=== PATIENT | female | born 1950 | race Caucasian/White ===

== ENCOUNTER 2018-01-06 18:29 | Observation (INO) | payer MEDICARE ==
[~2018-01-06] VITALS: Ht 165.1 cm; Wt 59.9 kg
[2018-01-06 19:08] LABS: Source, Urine Clean Catch
[2018-01-06 19:11] LABS: Bilirubin, Urine Neg (Neg); Blood, Urine Neg (Neg); Glucose Qualitative, Urine Neg (Neg); Ketones, Urine Neg (Neg); Leukocyte Esterase, Urine 1+ (Neg); Nitrite, Urine Neg (Neg); Protein, Urine Neg (Neg); Urobilinogen, Urine NORM (Normal)
[2018-01-06 19:19] LABS: BASOPHILS ABSOLUTE AUTO 0.07 K/mm3 (0.00-0.23); BASOPHILS PERCENT AUTO 1 % (0-2); EOSINOPHILS ABSOLUTE AUTO 0.19 K/mm3 (0.00-0.68); EOSINOPHILS PERCENT AUTO 3 % (0-6); Hematocrit 37.6 % (33.0-51.0); IMMATURE GRAN ABSOLUTE AUTO 0.02 K/mm3 (0.00-0.10); IMMATURE GRAN PERCENT AUTO 0 % (0-1); LYMPHOCYTES ABSOLUTE AUTO 1.83 K/mm3 (0.84-5.20); LYMPHOCYTES PERCENT AUTO 25 % (21-46); MONOCYTES PERCENT AUTO 14 % (4-13); Mean Corpuscular HGB 29.7 pg (26.0-34.0); Mean Corpuscular HGB Conc 34.6 g/dL (31.5-36.5); Mean Corpuscular Volume 86 fL (80-100); Mean Platelet Volume 9.5 fL (9.1-12.4); NEUTROPHILS ABSOLUTE AUTO 4.31 K/mm3 (1.96-9.15); NEUTROPHILS PERCENT AUTO 58 % (41-73); Platelet Count 305 K/mm3 (150-400); RDW Coefficient Variation 13.3 % (11.7-14.2); RDW Standard Deviation 42.3 fL (35.1-46.3); Red Blood Cell Count 4.37 M/mm3 (3.80-5.20); White Blood Cell Count 7.42 K/mm3 (4.00-11.30)
[2018-01-06 19:20] LABS: Appearance, Urine Clear (Clear); Color, Urine Yellow (P-Yellow)
[2018-01-06 19:21] LABS: Red Blood Cells, Urine Not Seen /hpf (0-2)
[2018-01-06 19:22] LABS: U Amphetamine Screen Not Detected; U Barbituate Screen Not Detected; U Benzodiazapine Screen Not Detected; U Buprenorphine Screen Not Detected; U Cannabinoids Screen Not Detected; U Cocaine Screen Not Detected; U Methadone Screen Not Detected; U Methamphetamine Screen Not Detected; U Opiates Screen Not Detected; U Oxycodone Screen Not Detected; U Phencyclidine Screen Not Detected; U Propoxyphene Screen Not Detected
[2018-01-06 19:22] LABS: Bacteria Rare /hpf; Squamous Epithelial Cells Rare /hpf (Few)
[2018-01-06 19:42] LABS: Alanine Aminotransfer (ALT/SGP 43 U/L (12-78); Albumin, Blood 3.8 g/dL (3.4-5.0); Albumin/Globulin Ratio 1.2 (0.8-1.8); Alk Phos 50 U/L (50-136); Anion Gap 9 mmol/L (6-16); Aspartate Aminotrans (AST/SGOT 37 U/L (12-37); Bilirubin, Total 0.5 mg/dL (0.1-1.0); Blood Urea Nitrogen 12 mg/dL (8-24); Bun/Creatinine Ratio 19.7 (12.0-20.0); CO2, Blood 24 mmol/L (21-32); Calcium, Blood 8.9 mg/dL (8.5-10.1); Chloride, Blood 103 mmol/L (98-108); Creatinine, Blood 0.61 mg/dL (0.40-1.00); Ethanol (Alcohol), Blood, Med <3 mg/dL; Globulin, Blood 3.3 g/dL (2.2-4.0); Glomerular Filtration Rate >60 (60-); Glucose, Blood 122 mg/dL (70-99); Potassium, Blood 3.8 mmol/L (3.5-5.5); Sodium, Blood 136 mmol/L (136-145); Total Protein, Blood 7.1 g/dL (6.4-8.2)
[2018-01-06 19:46] LABS: Thyroid Stimulating Hormone 0.838 uIU/mL (0.360-4.800)
[2018-01-07] MEDS ORDERED: RISP1 PO (06:57)
== END 2018-01-08 13:46 | disposition home or self-care (01) ==
LOC: ER 18:29 → EOR 18:30
PROVIDERS: Emergency Medicine
DX: F31.2 Bipolar disorder, current episode manic severe with psychotic features (principal); F17.200 Nicotine dependence, unspecified, uncomplicated; F03.90 Unspecified dementia, unspecified severity, without behavioral disturbance, psychotic disturbance, mood disturbance, and anxiety; Z79.899 Other long term (current) drug therapy
CPT/HCPCS: 36415; 70450; 80053; 81001; 84443; 85025; 87086; 99285-25; G0378; G0480; Q3014

== ENCOUNTER 2018-10-17 18:32 | Observation (INO) | payer MEDICARE, OTHER ==
[~2018-10-17] VITALS: Ht 162.6 cm; Wt 47.2 kg
[~2018-10-17 18:32] MED LIST: RISP1 PO
[2018-10-17 19:15] LABS: Source, Urine Clean Catch
[2018-10-17 19:30] LABS: BASOPHILS ABSOLUTE AUTO 0.04 K/mm3 (0.00-0.23); BASOPHILS PERCENT AUTO 0 % (0-2); EOSINOPHILS ABSOLUTE AUTO 0.21 K/mm3 (0.00-0.68); EOSINOPHILS PERCENT AUTO 1 % (0-6); Hematocrit 48.1 % (33.0-51.0); Hemoglobin 16.3 g/dL (11.5-16.0); IMMATURE GRAN ABSOLUTE AUTO 0.08 K/mm3 (0.00-0.10); IMMATURE GRAN PERCENT AUTO 1 % (0-1); LYMPHOCYTES ABSOLUTE AUTO 2.53 K/mm3 (0.84-5.20); LYMPHOCYTES PERCENT AUTO 17 % (21-46); MONOCYTES ABSOLUTE AUTO 0.97 K/mm3 (0.16-1.47); MONOCYTES PERCENT AUTO 7 % (4-13); Mean Corpuscular HGB Conc 33.9 g/dL (31.5-36.5); Mean Corpuscular Volume 91 fL (80-100); Mean Platelet Volume 9.6 fL (9.1-12.4); NEUTROPHILS ABSOLUTE AUTO 10.89 K/mm3 (1.96-9.15); NEUTROPHILS PERCENT AUTO 74 % (41-73); Platelet Count 323 K/mm3 (150-400); RDW Coefficient Variation 13.4 % (11.7-14.2); RDW Standard Deviation 45.7 fL (35.1-46.3); Red Blood Cell Count 5.26 M/mm3 (3.80-5.20); White Blood Cell Count 14.72 K/mm3 (4.00-11.30)
[2018-10-17 19:32] LABS: Appearance, Urine Clear (Clear); Bilirubin, Urine Neg (Neg); Blood, Urine Neg (Neg); Color, Urine Yellow (P-Yellow); Glucose Qualitative, Urine Neg (Neg); Ketones, Urine Neg (Neg); Leukocyte Esterase, Urine 1+ (Neg); Nitrite, Urine Neg (Neg); Protein, Urine Neg (Neg); Urobilinogen, Urine NORM (Normal); pH, Urine 6.5 (5.0-8.0)
[2018-10-17 19:38] LABS: Bacteria Rare /hpf; Red Blood Cells, Urine Not Seen /hpf (0-2); Squamous Epithelial Cells Mod /hpf (Few)
[2018-10-17 19:40] LABS: U Amphetamine Screen Not Detected; U Barbituate Screen Not Detected; U Benzodiazapine Screen Not Detected; U Cannabinoids Screen Not Detected; U Cocaine Screen Not Detected; U Methadone Screen Not Detected; U Methamphetamine Screen Not Detected; U Opiates Screen Not Detected; U Phencyclidine Screen Not Detected
[2018-10-17 19:41] LABS: U Buprenorphine Screen Not Detected; U Oxycodone Screen Not Detected; U Propoxyphene Screen Not Detected
[2018-10-17 19:56] LABS: Alanine Aminotransfer (ALT/SGP 23 U/L (12-78); Albumin, Blood 3.8 g/dL (3.4-5.0); Albumin/Globulin Ratio 1.1 (0.8-1.8); Alk Phos 60 U/L (50-136); Anion Gap 7 mmol/L (6-16); Aspartate Aminotrans (AST/SGOT 18 U/L (12-37); Bilirubin, Total 0.5 mg/dL (0.1-1.0); Blood Urea Nitrogen 9 mg/dL (8-24); Bun/Creatinine Ratio 13.7 (12.0-20.0); CO2, Blood 28 mmol/L (21-32); Calcium, Blood 8.9 mg/dL (8.5-10.1); Chloride, Blood 103 mmol/L (98-108); Creatinine, Blood 0.66 mg/dL (0.40-1.00); Globulin, Blood 3.4 g/dL (2.2-4.0); Glomerular Filtration Rate >60 (60-); Glucose, Blood 96 mg/dL (70-99); Potassium, Blood 3.5 mmol/L (3.5-5.5); Sodium, Blood 138 mmol/L (136-145); Total Protein, Blood 7.2 g/dL (6.4-8.2)
[2018-10-17 20:10] LABS: Free Thyroxine 1.3 ng/dL (0.70-1.60)
[2018-10-17 20:15] LABS: Thyroid Stimulating Hormone 0.51 uIU/mL (0.360-4.800)
[2018-10-17] MEDS ORDERED: QUET100 PO (20:44)
[2018-10-18] MEDS ORDERED: Seroquel50 MG PO (18:25)
== END 2018-10-18 18:45 | disposition home or self-care (01) ==
LOC: ER 18:32 → EOR 20:36
PROVIDERS: Physician Assistant; ADMIT Emergency Medicine
DX: F31.9 Bipolar disorder, unspecified (principal); F03.90 Unspecified dementia, unspecified severity, without behavioral disturbance, psychotic disturbance, mood disturbance, and anxiety; F20.9 Schizophrenia, unspecified; F17.210 Nicotine dependence, cigarettes, uncomplicated; Z79.899 Other long term (current) drug therapy
CPT/HCPCS: 71046; 80053; 81001; 84439; 84443; 85025; 87086; 99285-25; G0378; G0480; Q3014

== ENCOUNTER 2022-05-16 18:18 | Emergency (ER) | payer OTHER, MEDICARE ==
[~2022-05-16] VITALS: Ht 162.6 cm; Wt 61.2 kg
[~2022-05-16 18:18] MED LIST changes: +MIRT15 PO; +QUET100 PO; +Seroquel50 MG PO
[2022-05-16] MEDS ORDERED: OXAYDO5 M1 PO (20:38)
== END 2022-05-16 21:29 | disposition home or self-care (01) ==
LOC: ER 18:18
DX: S32.592A Other specified fracture of left pubis, initial encounter for closed fracture (principal); W01.0XXA Fall on same level from slipping, tripping and stumbling without subsequent striking against object, initial encounter; F03.90 Unspecified dementia, unspecified severity, without behavioral disturbance, psychotic disturbance, mood disturbance, and anxiety; F17.200 Nicotine dependence, unspecified, uncomplicated; Z79.899 Other long term (current) drug therapy
CPT/HCPCS: 72100; 72170; 72220; A9270

== ENCOUNTER 2022-05-20 14:26 | Observation (INO) | payer MEDICARE, OTHER ==
[~2022-05-20] VITALS: Ht 162.6 cm; Wt 60.3 kg
[~2022-05-20 14:26] MED LIST changes: +OXAYDO5 M1 PO
[2022-05-20] MEDS ORDERED: QUET100 PO (14:43)
[2022-05-20] MEDS ORDERED: MIRT15 (14:43)
[2022-05-20 15:14] LABS: BASOPHILS ABSOLUTE AUTO 0.04 K/mm3 (0.00-0.23); BASOPHILS PERCENT AUTO 1 % (0-2); EOSINOPHILS ABSOLUTE AUTO 0.15 K/mm3 (0.00-0.68); EOSINOPHILS PERCENT AUTO 2 % (0-6); Hematocrit 35.9 % (33.0-51.0); Hemoglobin 12.2 g/dL (11.5-16.0); IMMATURE GRAN ABSOLUTE AUTO 0.03 K/mm3 (0.00-0.10); IMMATURE GRAN PERCENT AUTO 0 % (0-1); LYMPHOCYTES ABSOLUTE AUTO 1.51 K/mm3 (0.84-5.20); LYMPHOCYTES PERCENT AUTO 20 % (21-46); MONOCYTES ABSOLUTE AUTO 0.81 K/mm3 (0.16-1.47); MONOCYTES PERCENT AUTO 10 % (4-13); Mean Corpuscular HGB 29.5 pg (26.0-34.0); Mean Corpuscular Volume 87 fL (80-100); Mean Platelet Volume 10.3 fL (9.1-12.4); NEUTROPHILS ABSOLUTE AUTO 5.22 K/mm3 (1.96-9.15); NEUTROPHILS PERCENT AUTO 67 % (41-73); Platelet Count 218 K/mm3 (150-400); RDW Coefficient Variation 13.8 % (11.7-14.2); RDW Standard Deviation 43.7 fL (35.1-46.3); Red Blood Cell Count 4.14 M/mm3 (3.80-5.20); White Blood Cell Count 7.76 K/mm3 (4.00-11.30)
[2022-05-20 15:28] LABS: Albumin, Blood 3.1 g/dL (3.4-5.0); Bilirubin, Total 1.1 mg/dL (0.1-1.0); Bun/Creatinine Ratio 16.6 (12.0-20.0); Calcium, Blood 8.5 mg/dL (8.5-10.1); Creatinine, Blood 0.6 mg/dL (0.40-1.00); Globulin, Blood 3.1 g/dL (2.2-4.0); Potassium, Blood 3.4 mmol/L (3.5-5.5); Total Protein, Blood 6.2 g/dL (6.4-8.2)
[2022-05-20 15:50] LABS: Influenza A, PCR NEGATIVE (NEGATIVE); Influenza B, PCR NEGATIVE (NEGATIVE); Resp Syncytial Virus, PCR NEGATIVE (NEGATIVE); SARS-Cov-2 (COVID-19) PCR, MMC NEGATIVE (NEGATIVE)
[2022-05-20] MEDS ORDERED: ATOR40TA PO (21:57)
--- NOTE | 2022-05-21 03:36 | NUR ---
SHIFT SUMMARY PT ARRIVED TO FLOOR, ASSESSMENT AND AMDISSION COMPLETE. SKIN INTACT THROUGHOUT. REPORTS MILD PAIN TO L HIP. ON 3LO2 DURING NIGHT. PT HAS COUGH BUT DENIES ANY SOB. NO OTHER S/S OF DISTRESS. PT USING COMMODE. PT SLEPT REST OF NIGHT. PT ABLE TO MAKE NEEDS KNOWN, BED ALARM ON. WILL CONTINUE TO MONITOR
[2022-05-21 05:39] LABS: Bun/Creatinine Ratio 27.3 (12.0-20.0); Calcium, Blood 8.9 mg/dL (8.5-10.1); Creatinine, Blood 0.51 mg/dL (0.40-1.00); Potassium, Blood 4.2 mmol/L (3.5-5.5)
[2022-05-21] MEDS ORDERED: Prednisone10 MG PO (14:29)
--- NOTE | 2022-05-21 18:16 | NUR ---
1538 patient discharged, w/c ride to [place]
== END 2022-05-21 17:31 | disposition home health service (06) ==
LOC: ER 14:26 → MEDS 20:24 → ERHOLD 20:24 → MEDS 22:01
PROVIDERS: Emergency Medicine; ADMIT Family Medicine
DX: J96.01 Acute respiratory failure with hypoxia (principal); J44.1 Chronic obstructive pulmonary disease with (acute) exacerbation; Z20.822 Contact with and (suspected) exposure to COVID-19; Z66 Do not resuscitate; E87.6 Hypokalemia
CPT/HCPCS: 0241U; 36415; 71045; 72170; 72220; 80048; 80053; 83880; 84484; 85025; 93005; 93010; 94640; 94644; 94664; 96372; 97110; 97116; 97162; 97166; 97535; A9270; G0378; J1650; J7512

== ENCOUNTER 2022-05-27 15:32 | Inpatient (IN) | payer MEDICARE, OTHER ==
[~2022-05-27] VITALS: Ht 162.6 cm; Wt 58.3 kg
[~2022-05-27 15:32] MED LIST changes: +ATOR40TA PO; +MIRT15; +Prednisone10 MG PO
[2022-05-27 16:31] LABS: BASOPHILS ABSOLUTE AUTO 0.01 K/mm3 (0.00-0.23); BASOPHILS PERCENT AUTO 0 % (0-2); EOSINOPHILS ABSOLUTE AUTO 0.02 K/mm3 (0.00-0.68); EOSINOPHILS PERCENT AUTO 0 % (0-6); Hematocrit 38.2 % (33.0-51.0); Hemoglobin 12.6 g/dL (11.5-16.0); IMMATURE GRAN ABSOLUTE AUTO 0.04 K/mm3 (0.00-0.10); IMMATURE GRAN PERCENT AUTO 0 % (0-1); LYMPHOCYTES PERCENT AUTO 3 % (21-46); MONOCYTES ABSOLUTE AUTO 0.52 K/mm3 (0.16-1.47); MONOCYTES PERCENT AUTO 6 % (4-13); Mean Corpuscular Volume 91 fL (80-100); Mean Platelet Volume 9.4 fL (9.1-12.4); NEUTROPHILS ABSOLUTE AUTO 8.65 K/mm3 (1.96-9.15); NEUTROPHILS PERCENT AUTO 91 % (41-73); Platelet Count 373 K/mm3 (150-400); RDW Coefficient Variation 15.4 % (11.7-14.2); RDW Standard Deviation 51.1 fL (35.1-46.3); White Blood Cell Count 9.54 K/mm3 (4.00-11.30)
[2022-05-27 16:53] LABS: Albumin, Blood 3.3 g/dL (3.4-5.0); Albumin/Globulin Ratio 1.1 (0.8-1.8); Bilirubin, Total 0.6 mg/dL (0.1-1.0); Bun/Creatinine Ratio 15.2 (12.0-20.0); Calcium, Blood 8.4 mg/dL (8.5-10.1); Creatinine, Blood 0.59 mg/dL (0.40-1.00); Globulin, Blood 3.1 g/dL (2.2-4.0); Potassium, Blood 4.2 mmol/L (3.5-5.5); Total Protein, Blood 6.4 g/dL (6.4-8.2)
[2022-05-27 18:07] LABS: Influenza B, PCR NEGATIVE (NEGATIVE); Resp Syncytial Virus, PCR NEGATIVE (NEGATIVE); SARS-Cov-2 (COVID-19) PCR, MMC NEGATIVE (NEGATIVE)
[2022-05-27 18:08] LABS: Influenza A, PCR POSITIVE (NEGATIVE)
--- NOTE | 2022-05-27 23:13 | NUR ---
ASSUMPTION OF CARE NOTE PT ARRIVED FROM ER TO PCU 17 AT 2049. PT IS A/Ox3 AND IS COOPERTIVE WITH CARE PROVIDED BY STAFF. CAN BE FORGETFUL AT TIMES AND IS SLOW TO RESPOND TO SOME QUESTIONS. MAINTAINS SPO2 >90% ON 2L VIA NC WITH NO SOB OR DYSPNEA NOTED AT REST. CARDIAC GARCIA. HR IN THE 70'S WITH NO CP OR PRESSURE REPORTED BY THE PT AT THIS TIME. BP'S ARE STABLE AT THIS TIME. BS PRESENT IN ALL QUADRANTS, NO UO AT THIS TIME. MEDICATIONS GIVEN ORDERED PER EMAR. WILL CONTINUE TO LOOK THROUGH CHART AND MONITOR PT
[2022-05-28 06:24] LABS: BASOPHILS ABSOLUTE AUTO 0.01 K/mm3 (0.00-0.23); BASOPHILS PERCENT AUTO 0 % (0-2); EOSINOPHILS ABSOLUTE AUTO 0.01 K/mm3 (0.00-0.68); EOSINOPHILS PERCENT AUTO 0 % (0-6); Hematocrit 35.7 % (33.0-51.0); Hemoglobin 11.7 g/dL (11.5-16.0); IMMATURE GRAN ABSOLUTE AUTO 0.04 K/mm3 (0.00-0.10); IMMATURE GRAN PERCENT AUTO 1 % (0-1); LYMPHOCYTES ABSOLUTE AUTO 0.39 K/mm3 (0.84-5.20); LYMPHOCYTES PERCENT AUTO 5 % (21-46); MONOCYTES ABSOLUTE AUTO 0.41 K/mm3 (0.16-1.47); MONOCYTES PERCENT AUTO 5 % (4-13); Mean Corpuscular HGB 29.8 pg (26.0-34.0); Mean Corpuscular HGB Conc 32.8 g/dL (31.5-36.5); Mean Corpuscular Volume 91 fL (80-100); Mean Platelet Volume 9.8 fL (9.1-12.4); NEUTROPHILS ABSOLUTE AUTO 7.42 K/mm3 (1.96-9.15); NEUTROPHILS PERCENT AUTO 90 % (41-73); Platelet Count 360 K/mm3 (150-400); RDW Coefficient Variation 15.5 % (11.7-14.2); RDW Standard Deviation 51.1 fL (35.1-46.3); Red Blood Cell Count 3.93 M/mm3 (3.80-5.20); White Blood Cell Count 8.28 K/mm3 (4.00-11.30)
[2022-05-28 06:34] LABS: Bun/Creatinine Ratio 24.2 (12.0-20.0); Calcium, Blood 8.2 mg/dL (8.5-10.1); Creatinine, Blood 0.5 mg/dL (0.40-1.00); Potassium, Blood 4.4 mmol/L (3.5-5.5)
--- NOTE | 2022-05-28 06:43 | NUR ---
SHIFT SUMMARY NO ACUTE CHANGES FROM TRANSFER OF CARE NOTE. VSS, NADN
--- NOTE | 2022-05-28 09:16 | NUR ---
AM NOTE: PATIENT ALERT AND ORIENTED. UNABLE TO TELL ME DATE. FORGETFUL AT TIMES NEEDING REINFORCED EDUCATION ON HOW TO USE CALL LIGHT AND SAFETY MEASURES. DENIES NUMBNESS/TINGLING. PERRLA. 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 SOMEWHAT WEAK AND PAINFUL ON LEFT HIP DUE TO RECENT GLF. BRUISING NOTED TO LEFT HIP/INNER THIGH. PATIENT DENIES NEEDS FOR ANY PAIN MEDICATION. Q2 TURNING AND NEEDED. ON 2L NASAL CANNULA SATING ABOVE 94%. FREQUENT DRY COUGH NOTED. COARSE LUNGS THROUGHOUT. SOB WITH TALKING AND MOVEMENT. TELE SHOWING SINUS RHYTHM WITH HR 70-80'S. STABLE BP. NO SIGNS OF EDEMA. PPP. DENIES ABDOMINAL PAIN/NAUSEA. EATING WNL. UP TO BSC WITH 1 PERSON ASSIST. NICOTINE PATCH TO LEFT SHOULDER. NS INFUSING PER EMAR. CALL LIGHT IN REACH.
--- NOTE | 2022-05-28 17:56 | NUR ---
SHIFT SUMMARY: NO ACUTE CHANGES THROUGHOUT SHIFT, SEE PREVIOUS NOTES FOR UPDATES. REMAINS ON 2-4L NASAL CANNULA SATING LOW-MID 90'S. VERY FORGETFUL AND TAKING OUT 02. DESATS TO LOW 80'S WHEN O2 IS OFF. BED ALARM ON FOR SAFETY. TELE CONTINUES TO SHOW SR. VITALS STABLE THROUGHOUT SHIFT. EATING WNL. TMAX 99.3, TYLENOL GIVEN. PRN COUGH MEDS. SBA TO BSC TO HELP MANAGE LINES. WORKING WITH PHYSICAL THERAPY.
--- NOTE | 2022-05-29 04:58 | NUR ---
SHIFT SUMMARY PT A&Ox4, CAN BE FORGETFUL AT TIMES, EASILY REORIENTED. VSS, BP STABLE, SINUS 80's, DENIES CP/PRESSURE. SpO2> 92% ON 3L VIA NC, PT DESATURATES TO MID 80's WITH ACTIVITY, RECOVERS AFTER A FEW MINUTES OF REST. DENIES SOB AT REST, REPORTS MILD SOB WITH ACTIVITY. PT WITH OCCATIONAL NONPRODUCTIVE COUGH. PT USED CALL LIGHT APPROPRIATELY THROUHOUT THE NIGHT, BED ALARM USED THROUGHOUT SHIFT. SBA TO BSC FOR VOIDS, CONTINTNET OF URINE. NO ACUTE EVENTS THIS SHIFT, WILL REPORT TO ON COMING RN.
[2022-05-29 05:19] LABS: BASOPHILS ABSOLUTE AUTO 0.01 K/mm3 (0.00-0.23); BASOPHILS PERCENT AUTO 0 % (0-2); EOSINOPHILS ABSOLUTE AUTO 0.01 K/mm3 (0.00-0.68); EOSINOPHILS PERCENT AUTO 0 % (0-6); Hematocrit 33.9 % (33.0-51.0); Hemoglobin 11.3 g/dL (11.5-16.0); IMMATURE GRAN ABSOLUTE AUTO 0.03 K/mm3 (0.00-0.10); IMMATURE GRAN PERCENT AUTO 0 % (0-1); LYMPHOCYTES ABSOLUTE AUTO 0.42 K/mm3 (0.84-5.20); LYMPHOCYTES PERCENT AUTO 5 % (21-46); MONOCYTES ABSOLUTE AUTO 0.53 K/mm3 (0.16-1.47); MONOCYTES PERCENT AUTO 6 % (4-13); Mean Corpuscular HGB 30.3 pg (26.0-34.0); Mean Corpuscular HGB Conc 33.3 g/dL (31.5-36.5); Mean Corpuscular Volume 91 fL (80-100); Mean Platelet Volume 10.1 fL (9.1-12.4); NEUTROPHILS PERCENT AUTO 88 % (41-73); Platelet Count 332 K/mm3 (150-400); RDW Coefficient Variation 15.6 % (11.7-14.2); RDW Standard Deviation 51.1 fL (35.1-46.3); Red Blood Cell Count 3.73 M/mm3 (3.80-5.20)
[2022-05-29 05:49] LABS: Albumin, Blood 2.5 g/dL (3.4-5.0); Bilirubin, Total 0.3 mg/dL (0.1-1.0); Bun/Creatinine Ratio 28.3 (12.0-20.0); Calcium, Blood 7.7 mg/dL (8.5-10.1); Creatinine, Blood 0.5 mg/dL (0.40-1.00); Globulin, Blood 2.4 g/dL (2.2-4.0); Potassium, Blood 4.2 mmol/L (3.5-5.5); Total Protein, Blood 4.9 g/dL (6.4-8.2)
--- NOTE | 2022-05-29 09:25 | NUR ---
AM NOTE: PATIENT ALERT AND ORIENTED X3. FORGETFUL AND NEEDS REINFORCED EDUCATION ON SAFETY AND PLAN OF CARE. UP TO BSC WITH ONE PERSON ASSIST TO HELP MANAGE CORDS. BED ALARM IN PLACE FOR SAFETY. DENIES N/T. PERRLA. WEARING GLASSES. WEAKNESS NOTED IN LEGS. RECENT GLF AT HOME PRIOR TO ADMIT WITH BRUISING TO LEFT INNER THIGH AND HIP. PATIENT STATES SORENESS IN LEFT HIP WHEN UP TO BSC. ON 2-3L NASAL CANNULA AT REST SATING LOW 90'S. NEEDING UP TO 5L WHEN UP TO BSC. LUNGS COARSE WITH EXP WHEEZE. BREATHING TREATMENTS PER RESPIRATORY. COARSE/LOOSE SOUNDING COUGH. TELE SHOWING SR WITH HR 70-80'S. DENIES CP. PPP. NO SIGNS OF EDEMA. DENIES ABDOMINAL PAIN/NAUSEA. STOOL SOFTNERS GIVEN THIS AM. EATING WNL. UP TO BSC TO VOID. ATTENDS IN PLACE. CALL LIGHT IN REACH.
--- NOTE | 2022-05-29 17:10 | NUR ---
SHIFT SUMMARY: NO ACUTE CHANGES SEE PREVIOUS NOTE FOR UPDATES. REMAINS ON 2-3L AT REST AND NEEDING UP TO 5L WHEN UP TO BSC. MEDICAL STATUS NO TELE. VITALS SIGNS REMAIN STABLE. SOME SORENESS TO LEFT HIP, MEDICATED WITH TYLENOL WITH GOOD RELIEF. SBA TO BSC. BED ALARM ON FOR SAFETY. SISTER MARGUERITE IN TO VISIT AND UPDATED ON PLAN OF CARE. EATING WNL. CONTINUES TO HAVE LOOSE MOIST COUGH. NICOTINE PATCH TO LEFT SHOULDER. CALL LIGHT IN REACH.
[2022-05-30 03:49] LABS: BASOPHILS PERCENT AUTO 0 % (0-2); EOSINOPHILS ABSOLUTE AUTO 0.03 K/mm3 (0.00-0.68); EOSINOPHILS PERCENT AUTO 0 % (0-6); Hematocrit 34.4 % (33.0-51.0); Hemoglobin 11.3 g/dL (11.5-16.0); IMMATURE GRAN ABSOLUTE AUTO 0.06 K/mm3 (0.00-0.10); IMMATURE GRAN PERCENT AUTO 1 % (0-1); LYMPHOCYTES ABSOLUTE AUTO 0.48 K/mm3 (0.84-5.20); LYMPHOCYTES PERCENT AUTO 5 % (21-46); MONOCYTES ABSOLUTE AUTO 0.45 K/mm3 (0.16-1.47); MONOCYTES PERCENT AUTO 5 % (4-13); Mean Corpuscular HGB 29.7 pg (26.0-34.0); Mean Corpuscular HGB Conc 32.8 g/dL (31.5-36.5); Mean Corpuscular Volume 90 fL (80-100); Mean Platelet Volume 9.6 fL (9.1-12.4); NEUTROPHILS PERCENT AUTO 89 % (41-73); Platelet Count 317 K/mm3 (150-400); RDW Coefficient Variation 15.8 % (11.7-14.2); RDW Standard Deviation 52.4 fL (35.1-46.3); Red Blood Cell Count 3.81 M/mm3 (3.80-5.20); White Blood Cell Count 9.12 K/mm3 (4.00-11.30)
[2022-05-30 04:17] LABS: Albumin, Blood 2.6 g/dL (3.4-5.0); Albumin/Globulin Ratio 0.9 (0.8-1.8); Bilirubin, Total 0.5 mg/dL (0.1-1.0); Calcium, Blood 8.2 mg/dL (8.5-10.1); Creatinine, Blood 0.5 mg/dL (0.40-1.00); Globulin, Blood 2.8 g/dL (2.2-4.0); Potassium, Blood 3.7 mmol/L (3.5-5.5); Total Protein, Blood 5.4 g/dL (6.4-8.2)
--- NOTE | 2022-05-30 04:54 | NUR ---
SHIFT SUMMARY PT A&Ox4, CAN BE FORGETFUL AND SET HER BED ALARM OFF TO USE THE BSC AT TIMES, MAJORITY OF THE TIME PT CALLS AND COMMUNICATES NEEDS APPROPRIATELY. VSS, SpO2> 92% ON 3-5L VIA NC, REQUIRING 5L WITH ACTIVITY, REPORTS MILD SOB. BP STABLE, PT REMAINED MEDICAL/NO TELE STATUS, DENIES CP/PRESSURE. PT SBA TO BSC, CONTINENT OF URINE, NO DID NOT HAVE BM THIS SHIFT. NO ACUTE EVENTS THIS SHIFT, WILL REPORT TO ON COMING RN.
--- NOTE | 2022-05-30 11:11 | NUR ---
CARE ASSUMPTION THIS RN ASSUMED CARE FROM BONIFACIO ACE AT 0700. VSS. MED NO TELE. PATIENT IS ALERT AND ORIENTED X4. PATIENT REPORTS NO CHEST PAIN/PRESSURE, OR PAIN. PATIENT REPORTS SHORTNESS OF BREATH WITH ACITIVITY. SPO2 >90% ON 4L NC. PATIENT LUNGS ARE COARSE THROUGHOUT. SKIN IS FARGLE WITH BRUSING THROUGHOUT. SEE SHIFT ASSESSMENT FOR FURTHER DETIALS. PATIENT ABLE TO PERFORM ADLS INDEPDENTLY WITH ASSISTANCE OR SUPPLES BROUGHT TO HER. PLAN OF CARE UP TO DATE. GOING TO TITRATING OXYGEN AND SEE HOW SHE TOLERATES. MD FRAGOSO BY THIS AM. CALL LIGHT WITHIN REACH AND BED IN LOWEST POSITION. WILL CONTINUE TO MONITOR AND PROVIDE CARE.
--- NOTE | 2022-05-30 16:59 | NUR ---
SHIFT SUMMARY PATIENT NEURO REMAINS INTACT. PATIENT HAS HAD A COUPLE FORGETFUL EPISODES AND GOT OUT OF BED WITHOUT CALLING SETTING THE BED ALARM OFF. THIS RN HAS PROVIDED EDUCATION THROUGHOUT THE SHIFT. PATIENT RECEIVED A FULL BED BATH AND LINEN CHANGE. NO ACUTE CHANGES. VSS. SPO2 >90% ON 3.5L NC. PATIENT CALL LIGHT WITHIN REACH, BED ALARM ON AND BED IN LOWEST POSITION. WILL CONTINUE TO MONITOR AND PROVIDE CARE UNTIL HAND OFF WITH HANGERSMITH.
--- NOTE | 2022-05-30 22:10 | NUR ---
ASSUMPTION OF CARE THIS RN ASSUMED CARE OF PT AT 1900. PT SITTING UP IN BED, WATCHING TV. VSS; BP 120/76 (88), HR 64, RR 16, O2 92% ON 3.5 L, TEMP 99.8. PT DENIES SOB, BUT REPORTS EXPERIENCING SOB W/EXERTION. THIS RN NOTED DRY, NONPRODUCTIVE COUGH, PT DENIES COUGHING UP ANY SPUTUM AND STATES IS IS MORE OF "A DRY COUGH". REQUESTS PRN COUGH MEDICATION. LUNG SOUNDS CLEAR BUT DIMINISHED. PT RESPONDING AND ANSWERING QUESTIONS APPROPRIATELY. PT DENIES CP OR PRESSURE; REPORTS GENERAL PAIN D/T RECENT FALL AND CHRONIC PAIN. REPORTS PAIN IS IN L HIP; THIS RN NOTES BRUISING ON INNER AND OUTER L THIGH D/T RECENT FALL AT HOME. NO EDEMA NOTED. PT UP TO [facility] W/MINIMAL ASSISTANCE TO VOID. O2 SATS DECREASED TO 85%. O2 INCREASED TO 4.5 L VIA NC. PT ENCOURAGED TO TAKE SLOW, DEEP BREATHS. O2 INCREASED. THIS RN NOTED SOB W/EXERTION; PT ALSO REPORTS FEELING SOB. PT BACK TO BED AND REPOSITIONED W/MINIMAL ASSISTANCE. BED ALARM SET, CALL LIGHT IN REACH AND YELLOW SOCKS IN PLACE. PT REMINDED TO USE CALL LIGHT FOR NEEDS AND SAFETY.
[2022-05-31 04:14] LABS: BASOPHILS ABSOLUTE AUTO 0.01 K/mm3 (0.00-0.23); BASOPHILS PERCENT AUTO 0 % (0-2); EOSINOPHILS ABSOLUTE AUTO 0.01 K/mm3 (0.00-0.68); EOSINOPHILS PERCENT AUTO 0 % (0-6); Hematocrit 36.3 % (33.0-51.0); Hemoglobin 11.9 g/dL (11.5-16.0); IMMATURE GRAN ABSOLUTE AUTO 0.05 K/mm3 (0.00-0.10); IMMATURE GRAN PERCENT AUTO 1 % (0-1); LYMPHOCYTES ABSOLUTE AUTO 0.48 K/mm3 (0.84-5.20); LYMPHOCYTES PERCENT AUTO 6 % (21-46); MONOCYTES PERCENT AUTO 8 % (4-13); Mean Corpuscular HGB 29.5 pg (26.0-34.0); Mean Corpuscular HGB Conc 32.8 g/dL (31.5-36.5); Mean Corpuscular Volume 90 fL (80-100); Mean Platelet Volume 9.8 fL (9.1-12.4); NEUTROPHILS ABSOLUTE AUTO 6.74 K/mm3 (1.96-9.15); NEUTROPHILS PERCENT AUTO 86 % (41-73); Platelet Count 303 K/mm3 (150-400); RDW Coefficient Variation 15.7 % (11.7-14.2); Red Blood Cell Count 4.03 M/mm3 (3.80-5.20); White Blood Cell Count 7.89 K/mm3 (4.00-11.30)
[2022-05-31 04:40] LABS: Albumin, Blood 2.6 g/dL (3.4-5.0); Bilirubin, Total 0.6 mg/dL (0.1-1.0); Bun/Creatinine Ratio 22.3 (12.0-20.0); Calcium, Blood 8.4 mg/dL (8.5-10.1); Creatinine, Blood 0.54 mg/dL (0.40-1.00); Globulin, Blood 2.7 g/dL (2.2-4.0); Potassium, Blood 3.5 mmol/L (3.5-5.5); Total Protein, Blood 5.3 g/dL (6.4-8.2)
--- NOTE | 2022-05-31 06:10 | NUR ---
SHIFT SUMMARY PT A&O THROUGHOUT SHIFT. VSS. NO ACUTE CHANGES FROM PREVIOUS NURSING NOTE "ASSUMPTION OF CARE" WRITTEN BY THIS RN. PT RESTED WELL THROUGHOUT SHIFT. PT UP TO BSC X2 TO VOID. O2 SAT DROPPED TO 85%, O2 INCREASED; PT RECOVERED WELL. AFTER RECOVERING, O2 DECREASED BACK DOWN TO 3 L. O2 SATS MAINTAINING, WITH OCCASSION DESAT WHEN PT SLEEPING. DENIES PAIN OR SOB. CALL LIGHT IN REACH AND PT CALLS APPROPRIATELY.
--- NOTE | 2022-05-31 09:44 | NUR ---
ASUMPTION OF CARE: NEURO: ALERT AND ORIENTED, SLIGHTLY FORGETFUL, COOPERATIVE WITH CARE, PLESANT, POOR HISTORIAN. CADIAC: HR IN THE 50-60'S NO TELE. DENIES CHEST PAIN PRESSURE, OR SOB AT REST. LOWER BLOOD PRESSURE, MOST LIKELY PATIENT BASELINE, MAP >70. PULM: PATIENT HAVING EXERTIONAL DYSPNEA. INCREASED O2 TO 5-6 WITH EXERTION AND 3-4L TO MAINTAIN >88%. DENIES SOB AT REST. GI/: AMBULATES TO BSC WITHOUT ASSISTANCE. BOWEL CARE MEDS IN PLACE. WILL CONTINUE TO MONITOR UNTIL SHIFT CHANGE. NO CONCERNS FROM THIS RN AT THIS TIME. NEED FOR HOME O2 MAY BE PLAN FOR DISCHARGE ACCORDING TO PROVIDER.
--- NOTE | 2022-05-31 17:26 | NUR ---
END OF SHIFT: ONLY CHANGES FROM ASSUMPTION OF CARE ARE INCREASED O2 NEEDS TO STAY >88% DUE TO INCREASED EXERTION THROUGH THE DAY. PATIENT IS CURRENLTY ON 5L VIA NC, PATIENT PLAN TO DC TOMORROW. DENIES CHEST PAIN/PRESSURE OR SOB AT THIS TIME, WILL CONTINUE TO MONITOR UNTIL SHIFT CHANGE.
--- NOTE | 2022-06-01 04:20 | NUR ---
SHIFT SUMMARY: PT REMAINS ALERT AND ORIENTED X4, ABLE TO FOLLOW COMMANDS AND MAKE NEEDS KNOWN. BP AND HR STABLE, AFEBRILE, SATURATIONS >88% ON 5L NC, RESPIRATIONS EVEN AND UNLABORED AT REST, LUNG SOUNDS CLEAR IN UPPER, DIM IN BASES. PT STATES SOB WITH ACTIVITY. PULSES EQUAL AND STRONG THROUGHOUT. SBA TO BSC. NO BM THIS SHIFT. NO ACUTE EVENTS OVERNIGHT. BED IN LOW, CALL LIGHT IN REACH, WILL REPORT TO ONCOMING RN.
[2022-06-01 05:05] LABS: Hematocrit 36.8 % (33.0-51.0); Hemoglobin 12.4 g/dL (11.5-16.0); Mean Corpuscular HGB 29.8 pg (26.0-34.0); Mean Corpuscular HGB Conc 33.7 g/dL (31.5-36.5); Mean Corpuscular Volume 89 fL (80-100); Mean Platelet Volume 9.7 fL (9.1-12.4); Platelet Count 293 K/mm3 (150-400); RDW Coefficient Variation 15.4 % (11.7-14.2); RDW Standard Deviation 49.6 fL (35.1-46.3); Red Blood Cell Count 4.16 M/mm3 (3.80-5.20); White Blood Cell Count 9.23 K/mm3 (4.00-11.30)
[2022-06-01 05:26] LABS: Albumin, Blood 2.5 g/dL (3.4-5.0); Albumin/Globulin Ratio 0.9 (0.8-1.8); Bilirubin, Total 0.5 mg/dL (0.1-1.0); Bun/Creatinine Ratio 27.1 (12.0-20.0); Calcium, Blood 8.1 mg/dL (8.5-10.1); Creatinine, Blood 0.55 mg/dL (0.40-1.00); Globulin, Blood 2.9 g/dL (2.2-4.0); Potassium, Blood 3.2 mmol/L (3.5-5.5); Total Protein, Blood 5.4 g/dL (6.4-8.2)
[2022-06-01 05:43] LABS: BASOPHILS PERCENT MAN 0 % (0-2); EOSINOPHILS PERCENT MAN 0 % (0-6); LYMPHOCYTES % ATYPICAL MANUAL 2 % (0-0); LYMPHOCYTES ABSOLUTE MAN 2.58 K/mm3 (0.84-5.20); LYMPHOCYTES PERCENT MAN 26 % (21-46); MONOCYTES ABSOLUTE MAN 0.55 K/mm3 (0.16-1.47); MONOCYTES PERCENT MAN 6 % (4-13); NEUTROPHILS ABSOLUTE MAN 6.09 K/mm3 (1.96-9.15); SEG NEUTROPHILS PERCENT MAN 66 % (41-73); TOTAL CELLS COUNTED 100
[2022-06-01 11:47] LABS: Bicarbonate Venous 35.3 mmol/L (24.0-30.0); PCO2 Venous 56.6 mmHg (38-42); pH Blood Venous 7.46 (7.34-7.37)
--- NOTE | 2022-06-01 18:39 | NUR ---
END OF SHIFT: MAJOR CHANGES: PATIENT WAS STARTING THE DAY AT 6L VIA NC TO NEEDING 12L TO MAINTAIN SPO2 >88% THROUGHOUT THEDAY. RT WITH SCHEDULED BREATHING TREATMENTS, HAS BEEN WATCHING CLOSELY 2V SHOULD AN INCREASE TO PULM EMPHESYEMA. NO OTHER CHANGES. DEEP BREATHING AND FLUTTER VALVE TEACHING PREFORMED WELL. NEURO: PATIENT IS PLESANT ALERT AND ORIENTED, HAS A HARD TIME WITH MEMORY AT TIMES, USES THE CALL LIGHT APPROPRIATELY. CARDIAC: NO TELE DENIES CHEST PAIN PRESSURE OR SOB. BLOOD PRESSURE NORMOTENSIVE FOR PATIENT. PULM: SEE CHANGES ABOVE. GI/: PATIENT WITH GREAT OUTPUT, BM TODAY. CONTINENT AT THIS TIME. NO FURTHER CONCERNS, PROVIDER AWARE OF SITUATION AND PLAN TO ORDER CT IN THE AM IF NO IMPROVEMENT. WILL CONTINUE TO MONITOR UNTIL SHIFT CHANGE.
[2022-06-02 05:31] LABS: Albumin, Blood 2.4 g/dL (3.4-5.0); Albumin/Globulin Ratio 0.9 (0.8-1.8); Bilirubin, Total 0.7 mg/dL (0.1-1.0); Bun/Creatinine Ratio 25.9 (12.0-20.0); Calcium, Blood 8.4 mg/dL (8.5-10.1); Creatinine, Blood 0.5 mg/dL (0.40-1.00); Globulin, Blood 2.7 g/dL (2.2-4.0); Potassium, Blood 3.5 mmol/L (3.5-5.5); Total Protein, Blood 5.1 g/dL (6.4-8.2)
--- NOTE | 2022-06-02 06:02 | NUR ---
CONTROL ROOM OPERATOR SUMMARY PT IS ALERT AND ORIENTED COMMUNICATING APPROPRIATELY W STAFF THIS SHIFT. PT BEGAN SHIFT VERY SOB W SPO2 86-90% ON 15L NC. PT SWITCHED TO CPAP PER RT AND TAKEN TO PE STUDY PER PROVIDER ORDER HER D-DIMER WAS ELEVATED. AFTER RETURNING FROM CT THE PT WAS PLACED ON AIRVO AND HAS MAINTAINED O2 SATS >92% ON 40L 65-80%. BP WNL AND STABLE. TELE SHOWING SR IN THE 70'S. PT DENYING ANY CP OR PRESSURE THIS SHIFT. PT ABLE TO TOLERATE LYING FLAT BOTH DURING CT AND AGAIN WHEN IN HER ROOM W NO ORTHOPNEA. PT ABLE TO SLEEP COMFORTABLY IN BED W CALL LIGHT WITHIN REACH FOR THE SECOND HALF OF THE NIGHT. WILL REPORT TO ONCOMING RN.
--- NOTE | 2022-06-02 09:17 | NUR ---
AM NOTE: PATIENT ALERT AND ORIENTED X3-4. INTERMIT FORGETFULLNESS. BED ALARM ON FOR SAFETY. PERRLA. LOWER EXTREMITIES WEAK. STATES SHE HAS SOME SORENESS WHEN UP TO BEDSIDE COMMODE FROM RECENT FALL PRIOR TO ADMIT. BRUISING TO LEFT HIP/THIGH FROM FALL. TELE SHOWING SINUS RHYTHM WITH HR 70-80'S. DENIES CHEST PAIN/PRESSURE. BP STABLE. NO SIGNS OF EDEMA. PPP. ON HIGH FLOW HEATED NASAL CANNULA AT 40L AND 65% FIO2, SATING MID 90'S. LUNGS SOUNDING DIM WITH TIGHTNESS. OCCASIONAL MOIST SOUNDING COUGH WITH SPUTUM PRODUCTION. DENIES ABDOMINAL PAIN/NAUSEA. STATES HER APPEATITE IS NOT GREAT. NO SWALLOWING ISSUES NOTED. SBA TO BEDSIDE COMMODE. BED ALARM IN PLACE FOR SAFETY. CALL LIGHT IN REACH.
--- NOTE | 2022-06-02 14:15 | NUR ---
PATIENT SISTER MARGUERITE CALLED TO UPDATE. REMAINS ON 40L AND 65% SATING 90-94%. DISCUSSED POSSIBLE ECHO WITH DR. FRAGOSO. THIS RN TO ORDER ECHO. ORDERS IN PLACE. MERCHANDISE PRESENTATION ASSOCIATE UPDATED ON NEW ORDER. UP TO BSC FOR BATHROOM. BED BATH AND LINNEN CHANGE THIS AFTERNOON. BP REMAINS STABLE BUT ON SOFTER SIDE. PATIENT DENIES OVERALL PAINS. INCREASED WORK OF BREATHING AND DESATS TO HIGH 80'S WHEN UP TO BSC. CALL LIGHT IN REACH.
--- NOTE | 2022-06-02 14:42 | NUR ---
ECHO BEING DONE AT THIS TIME
--- NOTE | 2022-06-02 17:23 | NUR ---
PHYSICAL THERAPY IN TO WORK WITH PATIENT AND UP TO CHAIR FOR 10 MIN. WORK OF BREATHING WORSENING AND PATIENT DESATING TO MID 80'S. NOT RECOVERING QUICKLY. THIS RN CONCERNED WITH RESP STATUS AND PLACED CALL TO RESP THERAPIST, SWITCHED TO CPAP, SETTINGS 8 AND 60% FIO2 SATING MID 90'S. PATIENT NOT HUNGRY AND NOT WANTING TO EAT DINNER. ENCOURAGED TO DRINK WATER. ECHO COMPLETED AND RESULTS READ. PROCAL RESULTED WNL. VITALS SIGNS REMAINS STABLE WITH BP ON SOFTER SIDE. NO TEMP. UP TO BSC WITH ONE PERSON ASSIST. TELE CONTINUES TO SHOW SR.
--- NOTE | 2022-06-03 04:37 | NUR ---
END OF SHIFT SUMMARY: NO ACUTE CHANGES THIS SHIFT. PT ORIENTED, PLEASANT WITH STAFF, AND ANSWERING QUESTIONS APPROPRIATELY. PT SWITCHED TO AIRVO AT THE BEGINNING OF THE SHIFT. SETTINGS INCREASED FROM 45L 60% TO 45L 70% IN ORDER TO MAINTAIN SPO2 >90%. RESPIRATIONS EVEN AND UNLABORED AT REST. PT ABLE TO AMBULATE TO BEDSIDE COMMODE WITH ONE PERSON SBA. PT'S BP REMAINED ON THE SOFTER SIDE. PT DENIES ANY DIZZINESS OR LIGHT HEADEDNESS WITH TRANSFER. WILL CONTINUE TO MONITOR AND REPORT TO ONCOMING RN.
[2022-06-03 05:54] LABS: BASOPHILS ABSOLUTE AUTO 0.01 K/mm3 (0.00-0.23); BASOPHILS PERCENT AUTO 0 % (0-2); EOSINOPHILS ABSOLUTE AUTO 0.11 K/mm3 (0.00-0.68); EOSINOPHILS PERCENT AUTO 1 % (0-6); Hematocrit 36.2 % (33.0-51.0); Hemoglobin 12.3 g/dL (11.5-16.0); IMMATURE GRAN ABSOLUTE AUTO 0.05 K/mm3 (0.00-0.10); IMMATURE GRAN PERCENT AUTO 1 % (0-1); LYMPHOCYTES ABSOLUTE AUTO 1.42 K/mm3 (0.84-5.20); LYMPHOCYTES PERCENT AUTO 14 % (21-46); MONOCYTES ABSOLUTE AUTO 0.75 K/mm3 (0.16-1.47); MONOCYTES PERCENT AUTO 7 % (4-13); Mean Corpuscular HGB 29.5 pg (26.0-34.0); Mean Corpuscular Volume 87 fL (80-100); Mean Platelet Volume 10.7 fL (9.1-12.4); NEUTROPHILS PERCENT AUTO 78 % (41-73); Platelet Count 276 K/mm3 (150-400); RDW Standard Deviation 47.9 fL (35.1-46.3); Red Blood Cell Count 4.17 M/mm3 (3.80-5.20); White Blood Cell Count 10.44 K/mm3 (4.00-11.30)
[2022-06-03 06:34] LABS: Albumin, Blood 2.4 g/dL (3.4-5.0); Albumin/Globulin Ratio 0.8 (0.8-1.8); Bilirubin, Total 0.8 mg/dL (0.1-1.0); Bun/Creatinine Ratio 26.9 (12.0-20.0); Calcium, Blood 8.1 mg/dL (8.5-10.1); Creatinine, Blood 0.52 mg/dL (0.40-1.00); Potassium, Blood 3.4 mmol/L (3.5-5.5); Total Protein, Blood 5.4 g/dL (6.4-8.2)
--- NOTE | 2022-06-03 18:16 | NUR ---
Shift Summary Pt alert, oriented x3, forgetful, repeatedly taking off aorvo and later this evening nc. Pt up with 1person assist to chair and bsc. Pt denies pain, chest pain/pressure, sob nauses, dizziness and numb/tingling. Tele sinus 70-80's, bp stable. Spo2 >90% while o2 therapy in place, pt started on airvo 45L 70% fio2, this afternoon pt found without airvo in place by RT, spo2 87%, RT placed 2l o2 via nc, titrated up to 3l o2 via nc when pt removed o2 for recovery, will continue to titrate. Pt afebrile, other vss. No other acute changes noted. Will continue to monitor unitl report given to oncoming rn.
[2022-06-04 05:07] LABS: BASOPHILS ABSOLUTE AUTO 0.01 K/mm3 (0.00-0.23); BASOPHILS PERCENT AUTO 0 % (0-2); EOSINOPHILS ABSOLUTE AUTO 0.16 K/mm3 (0.00-0.68); EOSINOPHILS PERCENT AUTO 2 % (0-6); Hematocrit 34.2 % (33.0-51.0); Hemoglobin 11.5 g/dL (11.5-16.0); IMMATURE GRAN ABSOLUTE AUTO 0.04 K/mm3 (0.00-0.10); IMMATURE GRAN PERCENT AUTO 1 % (0-1); LYMPHOCYTES PERCENT AUTO 17 % (21-46); MONOCYTES ABSOLUTE AUTO 0.79 K/mm3 (0.16-1.47); MONOCYTES PERCENT AUTO 9 % (4-13); Mean Corpuscular HGB 29.3 pg (26.0-34.0); Mean Corpuscular HGB Conc 33.6 g/dL (31.5-36.5); Mean Corpuscular Volume 87 fL (80-100); Mean Platelet Volume 10.5 fL (9.1-12.4); NEUTROPHILS ABSOLUTE AUTO 6.09 K/mm3 (1.96-9.15); NEUTROPHILS PERCENT AUTO 72 % (41-73); Platelet Count 274 K/mm3 (150-400); RDW Coefficient Variation 14.9 % (11.7-14.2); RDW Standard Deviation 47.1 fL (35.1-46.3); Red Blood Cell Count 3.92 M/mm3 (3.80-5.20); White Blood Cell Count 8.49 K/mm3 (4.00-11.30)
[2022-06-04 05:31] LABS: Albumin, Blood 2.2 g/dL (3.4-5.0); Albumin/Globulin Ratio 0.6 (0.8-1.8); Bilirubin, Total 0.8 mg/dL (0.1-1.0); Bun/Creatinine Ratio 26.4 (12.0-20.0); Calcium, Blood 8.2 mg/dL (8.5-10.1); Creatinine, Blood 0.53 mg/dL (0.40-1.00); Globulin, Blood 3.4 g/dL (2.2-4.0); Potassium, Blood 3.4 mmol/L (3.5-5.5); Total Protein, Blood 5.6 g/dL (6.4-8.2)
--- NOTE | 2022-06-04 05:35 | NUR ---
SHIFT SUMMARY PT ALERT AND ORIENTED X 4 T/O SHIFT. REPORTED TO BE FORGETFUL DURING DAYSHIFT AND REMOVE NC T/O SHIFT. PT SLEPT T/O SHIFT AND DID NOT REMOVE NC. PT CURRENTLY ON AIRVO AT 45L AND 55% FIO2. OXYGEN SATURATION MAINTAINED ABOVE 92%. BP STABLE, MAP ABOVE 65. HR STABLE. NO CP OR PRESSURE. PT REPORTED PAIN ONCE DURING SHIFT IN ABD AND MEDICATED PER EMAR. PT ABLE TO ASSIST IN TURNS IN BED Q 2 HRS AND NEEDED. CALL LIGHT WITHIN REACH. BED ALARM IN PLACE. WILL CONT TO MONITOR UNTIL REPORT GIVEN TO DAYSHIFT RN.
--- NOTE | 2022-06-04 18:18 | NUR ---
SHIFT SUMMARY PT IS ALERT AND ORIENTED X4. SPO2 HAS BEEN MAINTAINED VIA AIRVO 45L 60-70% FIO2. PT DESATS W/ EXERTION BUT RECOVERS QUICKLY. HR AND BP STABLE. SHE HAS REPORTED PAIN IN TAILBONE THAT IS RELIEVED W/ REPOSITIONING. SHE REPORTED NAUSEA THIS AM BUT DENIED NAUSEA MEDICATION, SHE ALSO HAS A DECREASED APPETITE BUT IS TAKING IN PO FLUIDS. SHE HAS BEEN A SBA TO BEDSIDE COMMODE AND WAS UP IN CHAIR FOR LUNCH. SHE DID NOT WANT TO SIT IN CHAIR FOR DINNER. PHYSICAL THERAPY EVALUATED PT TODAY. OCCASIONAL, NON-PRODUCTIVE COUGH NOTED. NO OTHER ACUTE CHANGES NOTED, PT IS NOW WATCHING T.V IN BED, CALL LIGHT IS W/IN REACH. WILL CONTINUE TO MONITOR UNTIL REPORT GIVEN.
[2022-06-05 04:24] LABS: BASOPHILS ABSOLUTE AUTO 0.02 K/mm3 (0.00-0.23); BASOPHILS PERCENT AUTO 0 % (0-2); EOSINOPHILS ABSOLUTE AUTO 0.16 K/mm3 (0.00-0.68); EOSINOPHILS PERCENT AUTO 2 % (0-6); Hematocrit 33.8 % (33.0-51.0); Hemoglobin 11.4 g/dL (11.5-16.0); IMMATURE GRAN ABSOLUTE AUTO 0.04 K/mm3 (0.00-0.10); IMMATURE GRAN PERCENT AUTO 1 % (0-1); LYMPHOCYTES ABSOLUTE AUTO 1.46 K/mm3 (0.84-5.20); LYMPHOCYTES PERCENT AUTO 22 % (21-46); MONOCYTES ABSOLUTE AUTO 0.85 K/mm3 (0.16-1.47); MONOCYTES PERCENT AUTO 13 % (4-13); Mean Corpuscular HGB 29.8 pg (26.0-34.0); Mean Corpuscular HGB Conc 33.7 g/dL (31.5-36.5); Mean Corpuscular Volume 88 fL (80-100); Mean Platelet Volume 9.9 fL (9.1-12.4); NEUTROPHILS ABSOLUTE AUTO 4.24 K/mm3 (1.96-9.15); NEUTROPHILS PERCENT AUTO 63 % (41-73); Platelet Count 287 K/mm3 (150-400); RDW Coefficient Variation 14.5 % (11.7-14.2); Red Blood Cell Count 3.83 M/mm3 (3.80-5.20); White Blood Cell Count 6.77 K/mm3 (4.00-11.30)
[2022-06-05 04:59] LABS: Albumin, Blood 2.2 g/dL (3.4-5.0); Albumin/Globulin Ratio 0.6 (0.8-1.8); Bilirubin, Total 0.7 mg/dL (0.1-1.0); Bun/Creatinine Ratio 32.2 (12.0-20.0); Calcium, Blood 8.1 mg/dL (8.5-10.1); Creatinine, Blood 0.47 mg/dL (0.40-1.00); Globulin, Blood 3.4 g/dL (2.2-4.0); Potassium, Blood 3.5 mmol/L (3.5-5.5); Total Protein, Blood 5.6 g/dL (6.4-8.2)
--- NOTE | 2022-06-05 07:30 | NUR ---
NO ACUTE EVENTS OVERNIGHT LAST NIGHT. PATIENT REMAINS DEPENDENT UPON AIRVO (HEATED HUMIDIFIED HI-FLOW). STARTING OFF THE NIGHT HER SETTINGS WERE 45 LPM AT 70% FiO2. THIS WAS TITRATED DOWN TO 45 LPM AT 60% FiO2 BY THE MORNING. PT REPORTS SHORTNESS OF BREATH AT REST HAS LESSENED BUT IS STILL EXPERIENCING DYSPNEA WITH EXERTION. PATIENT COMPLAINS OF MILD PAIN TO LEFT LEG AND LOWER BACK, BUT DENIED NEED FOR ANY ANALGESICS LAST NIGHT. SHE IS ABLE TO MOVE FROM THE BED TO THE BEDSIDE COMMODE WITH MINIMAL ASSISTANCE, BUT IS SLOW IN DOING SO DUE TO PAIN AND WEAKNESS TO THE LEFT LEG. THIS IS SECONDARY TO A MILD DISPLACEMENT OF THE LEFT SUPERIOR AND INFERIOR RAMI FRACTURE SUSTAINED ON 05/20/22.
--- NOTE | 2022-06-05 18:06 | NUR ---
SHIFT SUMMARY PT REMAINS ALERT AND ORIENTED. HR REMAINS NSR WITH PAC. BP LOW, BUT MAP IS STABLE. PT ASYMPTOMATIC. O2 SATS REMAIN ABOVE 90% ON AIRVO AT 45L AND 60% FIO2. PT DESATS WITH MINIMAL ACTIVITY. PT UP TO BSC WITH 1 ASSIST AND FWW. PT REPORTS POOR APPETITE. NO ACUTE EVENTS THIS SHIFT. WILL CONTINUE TO MONITOR AND REPORT TO ONCOMING RN
--- NOTE | 2022-06-06 05:26 | NUR ---
SHIFT SUMMARY PT IS A&OX4, MOVES IND IN BED, HAS BEEN SR 70'S ON TELE, AND SHE IS ON AIRVO 45L 60%. SHE DESATURATED A FEW TIMES T/O THE NIGHT BUT WAS ABLE TO RECOVER W/ DEEP BREATHING COACHING AND A BOOST OF OXYGEN AT 100% FOR TWO MINUTES. SHE WAS EDUCATED ON THE INSPIROMETER AND HAS USED IT A FEW TIMES TONIGHT. PT IS A 1P W/ FWW ASSIST TO THE BSC AND IS WEAK. SHE CALLS APPROPRIATELY AND IS COOPERATIVE W/ CARE. BED IN LOW, BED ALARM ON, AND CALL LIGHT IS IN REACH. WILL CONTINUE TO MONITOR UNTIL SHIFT REPORT IS GIVEN TO THE ONCOMING SHIFT RN. SEE NOTES FOR ANY UPDATES. AIRVO 45L 60%
[2022-06-06 06:01] LABS: BASOPHILS ABSOLUTE AUTO 0.02 K/mm3 (0.00-0.23); BASOPHILS PERCENT AUTO 0 % (0-2); EOSINOPHILS ABSOLUTE AUTO 0.15 K/mm3 (0.00-0.68); EOSINOPHILS PERCENT AUTO 3 % (0-6); Hematocrit 36.7 % (33.0-51.0); IMMATURE GRAN ABSOLUTE AUTO 0.02 K/mm3 (0.00-0.10); IMMATURE GRAN PERCENT AUTO 0 % (0-1); LYMPHOCYTES ABSOLUTE AUTO 1.39 K/mm3 (0.84-5.20); LYMPHOCYTES PERCENT AUTO 23 % (21-46); MONOCYTES ABSOLUTE AUTO 0.85 K/mm3 (0.16-1.47); MONOCYTES PERCENT AUTO 14 % (4-13); Mean Corpuscular HGB 29.3 pg (26.0-34.0); Mean Corpuscular HGB Conc 32.7 g/dL (31.5-36.5); Mean Corpuscular Volume 90 fL (80-100); Mean Platelet Volume 10.4 fL (9.1-12.4); NEUTROPHILS ABSOLUTE AUTO 3.66 K/mm3 (1.96-9.15); NEUTROPHILS PERCENT AUTO 60 % (41-73); Platelet Count 337 K/mm3 (150-400); RDW Coefficient Variation 14.5 % (11.7-14.2); RDW Standard Deviation 47.4 fL (35.1-46.3); Red Blood Cell Count 4.09 M/mm3 (3.80-5.20); White Blood Cell Count 6.09 K/mm3 (4.00-11.30)
[2022-06-06 07:02] LABS: Albumin, Blood 2.4 g/dL (3.4-5.0); Albumin/Globulin Ratio 0.7 (0.8-1.8); Bilirubin, Total 0.5 mg/dL (0.1-1.0); Bun/Creatinine Ratio 25.8 (12.0-20.0); Calcium, Blood 8.6 mg/dL (8.5-10.1); Creatinine, Blood 0.54 mg/dL (0.40-1.00); Globulin, Blood 3.6 g/dL (2.2-4.0); Potassium, Blood 3.8 mmol/L (3.5-5.5)
--- NOTE | 2022-06-06 18:24 | NUR ---
END OF SHIFT NOTE PT A&O X4. VSS. MONITOR SHOWING SR, HR 70s-80s. SPO2 > 92% ON AIRVO: 40L, 45% FIO2. PT SBA TO BSC. PT SOB W/ EXERTION, REQUIRING TEMPORARY INCREASE IN FIO2 FOR ACTIVITY. OTHERWISE NO EVENTS THIS SHIFT.
[2022-06-07 04:29] LABS: BASOPHILS ABSOLUTE AUTO 0.03 K/mm3 (0.00-0.23); BASOPHILS PERCENT AUTO 1 % (0-2); EOSINOPHILS ABSOLUTE AUTO 0.15 K/mm3 (0.00-0.68); EOSINOPHILS PERCENT AUTO 3 % (0-6); Hematocrit 36.7 % (33.0-51.0); Hemoglobin 12.3 g/dL (11.5-16.0); IMMATURE GRAN ABSOLUTE AUTO 0.02 K/mm3 (0.00-0.10); IMMATURE GRAN PERCENT AUTO 0 % (0-1); LYMPHOCYTES ABSOLUTE AUTO 1.54 K/mm3 (0.84-5.20); LYMPHOCYTES PERCENT AUTO 26 % (21-46); MONOCYTES ABSOLUTE AUTO 0.72 K/mm3 (0.16-1.47); MONOCYTES PERCENT AUTO 12 % (4-13); Mean Corpuscular HGB 29.6 pg (26.0-34.0); Mean Corpuscular HGB Conc 33.5 g/dL (31.5-36.5); Mean Corpuscular Volume 88 fL (80-100); Mean Platelet Volume 10.2 fL (9.1-12.4); NEUTROPHILS ABSOLUTE AUTO 3.41 K/mm3 (1.96-9.15); NEUTROPHILS PERCENT AUTO 58 % (41-73); Platelet Count 373 K/mm3 (150-400); RDW Coefficient Variation 14.5 % (11.7-14.2); RDW Standard Deviation 46.3 fL (35.1-46.3); Red Blood Cell Count 4.15 M/mm3 (3.80-5.20); White Blood Cell Count 5.87 K/mm3 (4.00-11.30)
[2022-06-07 05:02] LABS: Albumin, Blood 2.5 g/dL (3.4-5.0); Albumin/Globulin Ratio 0.7 (0.8-1.8); Bilirubin, Total 0.6 mg/dL (0.1-1.0); Bun/Creatinine Ratio 26.5 (12.0-20.0); Calcium, Blood 8.9 mg/dL (8.5-10.1); Creatinine, Blood 0.53 mg/dL (0.40-1.00); Globulin, Blood 3.7 g/dL (2.2-4.0); Potassium, Blood 4.1 mmol/L (3.5-5.5); Total Protein, Blood 6.2 g/dL (6.4-8.2)
--- NOTE | 2022-06-07 06:05 | NUR ---
SHIFT SUMMARY PATIENT ALERT AND ORIENTED, PLEASANT AND COOOPERATIVE WITH CARE, ABLE TO MAKE NEEDS KNOWN TO STAFF. PATIENT WAS ABLE TO GET GOOD AMOUNT OF SLEEP DURING THE NIGHT. VSS, NOTED SOFT BPs, ON AIRVO 40L 45% FIO2 T/O SHIFT WITH O2 SAT LOW TO MID 90s. PATIENT ABLE TO MOVE SELF IN BED, TRANSFERS SELF TO BEDSIDE COMMODE. NO ACUTE CHANGES THIS SHIFT. WILL REPORT TO DAY SHIFT RN.
--- NOTE | 2022-06-07 18:12 | NUR ---
END OF SHIFT NOTE PT A&O X4. VSS. MONITOR SHOWING SR, HR 70s-80s. PT ON AIRVO: 40L, 45% FIO2 UPON CARE ASSUMPTION, TRANSITIONED TO 9L HI-GREY NC BY RT THIS AM W/ PT TOLERATING WELL. PT NOW W/ SPO2 > 92% ON 8L HI-GREY NC. O2 TEMPORARILY INCREASED TO 11L WHILE EATING LUNCH, NO TITRATION NEEDED WHEN EATING DINNER OR GETTING UP TO BSC LATER IN DAY.
--- NOTE | 2022-06-08 05:43 | NUR ---
SHIFT SUMMARY PATIENT ALERT AND ORIENTED, ABLE TO MAKE NEEDS KNOWN TO STAFF. VSS BUT PATIENT CONTINUES TO HAVE SOFT BPs, MAP >65. REMAINS ON 8L NC WITH O2 SAT >90%. PATIENT ABLE TO GET GOOD AMOUNT OF SLEEP THIS SHIFT WITH NO COMPLAINTS OF PAIN, CHEST PAIN OR SOB. PATIENT ABLE TO MOCE SELF IN THE BED INDEPDENDENTLY AND IS ABLE TO STAND PIVOT SELF TO BEDSIDE COMMODE WITH ADEQUATE OUTPUT. NO OTHER SIGNIFICANT CHANGES THIS SHIFT, WILL REPORT TO DAY SHIFT RN.
--- NOTE | 2022-06-08 17:08 | NUR ---
SHIFT SUMMARY PT IS ALERT AND ORIENTED X 4, SHE IS ABLE TO MAKE HER NEEDS KNOWN. SPO2 IS MAINTAINED VIA 4L HIGH FLOW NC. PT REPORTED THAT SHE DOES FEEL SOB UPON EXERTION BUT IT IS MUCH IMPROVED COMPARED TO PREVIOUS DAYS. HR AND BP STABLE. SHE HAS DENIED FEELINGS OF CHEST PAIN/PRESSURE, SHE HAS DENIED FEELINGS OF NAUSEA, OCCASIONAL, NON-PRODUCTIVE COUGH NOTED. SHE HAS BEEN A SBA TO BEDSIDE COMMODE AND DOES APPEAR WEAK BUT STEADY ON HER FEET. IV IN R FOREARM AND R AC ARE SALINE LOCKED. NO ACUTE CHANGES NOTED. WILL CONTINUE TO MONITOR UNTIL REPORT GIVEN. CALL LIGHT IS IN REACH AND PT IS NOW WATCHING T.V.
--- NOTE | 2022-06-09 06:08 | NUR ---
SHIFT SUMMARY PATIENT ALERT AND ORIENTED, ABLE TO MAKE NEEDS KNOWN TO STAFF. PATIENT ABLE TO GET GOOD AMOUNT OF REST THIS SHIFT. VSS, NOTED SOFT BPs, PATIENT TITRATED TO 3.5L NC WITH O2 SAT >90%. ABLE TO TURN SELF IN BED. UP TO BSC WITH GOOD URINE OUTPUT. NO COMPLAINS OF PAIN, CHEST PAIN OR SOB. NO ACUTE CHANGES. WILL REPORT TO DAY SHIFT RN.
--- NOTE | 2022-06-09 15:19 | NUR ---
CARE NOTE THIS NURSE SPOKE W/ PT SISTER TO PROVIDE UPDATES AT APPROX. 1515.
--- NOTE | 2022-06-09 16:31 | NUR ---
TRANSFER NOTE PT WAS ALERT AND ORIENTED X 4, VSS. SPO2 MAINTAINED 91-93% VIA 3L HFNC. REPORT WAS GIVEN TO SURGICAL NURSE MAY. PT WAS SBA TO WHEELCHAIR AND TRANSFERED FROM PCU AT APPROX. 1625 TO SURGICAL UNIT. MAY RN WAS AT BEDSIDE AND ASSUMED CARE.
--- NOTE | 2022-06-09 16:35 | NUR ---
PT TRANSFERRED NOW FROM PCU. PT A&OX4, ADRIAN PO, DENIES PAIN, 3LNC, SBA TRANSFER TO BED/HOB ELEVATED. EDU PT TO CALL FOR AMBULATION, REPOSITIONS SELF. WILL REPORT TO ONCOMING SON RN.
--- NOTE | 2022-06-10 06:37 | NUR ---
PT VSS T/O NIGHT; SATS >90% ON 3H NC. PT REP FEELING LESS SOB, LUNGS DIM/COARSE, PT HAS OCC LOOSE NON PROD COUGH. PT USING I/S AT BEDSIDE. PT AMB W/FWW+SBA, ADRIAN WELL.
--- NOTE | 2022-06-10 14:33 | NUR ---
SHIFT SUMMARY PT A&OX4, VSS/3L >92% WITH PT REP SOB DECREASING WITH EXERTION, USING I.S., UP TO CHAIR FOR MEALS/T-O SHIFT, AMB FWW/SBA TO BRP, DENIES PAIN. WILL REPORT TO ONCOMING NOC RN.
--- NOTE | 2022-06-11 17:33 | NUR ---
SUMMARY: NO CHANGE TODAY VSS, A/O. PLAN IS FOR SNF WHEN AVALIBLE. CONTINUES ON 3L NC, NO SOB, CHEST PAIN. NO SAFETY CONCERNS, WILL PASS REPORT TO SON RN.
[2022-06-12 04:53] LABS: BASOPHILS ABSOLUTE AUTO 0.06 K/mm3 (0.00-0.23); BASOPHILS PERCENT AUTO 1 % (0-2); EOSINOPHILS ABSOLUTE AUTO 0.33 K/mm3 (0.00-0.68); EOSINOPHILS PERCENT AUTO 5 % (0-6); Hematocrit 33.8 % (33.0-51.0); Hemoglobin 11.3 g/dL (11.5-16.0); IMMATURE GRAN ABSOLUTE AUTO 0.02 K/mm3 (0.00-0.10); IMMATURE GRAN PERCENT AUTO 0 % (0-1); LYMPHOCYTES ABSOLUTE AUTO 1.58 K/mm3 (0.84-5.20); LYMPHOCYTES PERCENT AUTO 25 % (21-46); MONOCYTES ABSOLUTE AUTO 0.66 K/mm3 (0.16-1.47); MONOCYTES PERCENT AUTO 10 % (4-13); Mean Corpuscular HGB 29.7 pg (26.0-34.0); Mean Corpuscular HGB Conc 33.4 g/dL (31.5-36.5); Mean Corpuscular Volume 89 fL (80-100); Mean Platelet Volume 9.8 fL (9.1-12.4); NEUTROPHILS ABSOLUTE AUTO 3.78 K/mm3 (1.96-9.15); NEUTROPHILS PERCENT AUTO 59 % (41-73); Platelet Count 397 K/mm3 (150-400); RDW Coefficient Variation 14.4 % (11.7-14.2); RDW Standard Deviation 45.7 fL (35.1-46.3); Red Blood Cell Count 3.81 M/mm3 (3.80-5.20); White Blood Cell Count 6.43 K/mm3 (4.00-11.30)
--- NOTE | 2022-06-12 05:06 | NUR ---
SHIFT SUMMARY A/O X4- VITAL SIGNS STABLE, REMAINS ON 3L NC TO KEEP SATURATIONS ABOVE 90%. IND/SBA TO THE BATHROOM THROUGHOUT THE SHIFT. TOLERATING PO INTAKE, NO N/V REPORTED. NO PAIN THROUGHOUT THE NIGHT. WILL CONTINUE TO MONITOR AND REPORT TO ONCOMING RN.
[2022-06-12 05:07] LABS: Albumin, Blood 2.6 g/dL (3.4-5.0); Albumin/Globulin Ratio 0.8 (0.8-1.8); Bilirubin, Total 0.5 mg/dL (0.1-1.0); Bun/Creatinine Ratio 30.5 (12.0-20.0); Calcium, Blood 8.8 mg/dL (8.5-10.1); Creatinine, Blood 0.56 mg/dL (0.40-1.00); Globulin, Blood 3.4 g/dL (2.2-4.0)
[2022-06-12 11:19] LABS: SARS-Cov-2 (COVID-19) PCR, MMC NEGATIVE (NEGATIVE)
--- NOTE | 2022-06-12 14:30 | NUR ---
DISCHARGE PT DISCHARGED TO [facility] FROM UNIT AT APROX 1430. REPORT GIVEN TO FACILITY. PACKET GIVEN TO REAR ADMIRAL. IV'S REMOVED. TOLREATED WELL
== END 2022-06-12 14:30 | DRG 193 ==
LOC: ER 15:32 → ERHOLD 20:28 → PCU 20:28 → SURS 06-09 16:16
PROVIDERS: Family Medicine; Internal Medicine; Student in an Organized Health Care Education/Training Program; ADMIT Internal Medicine
DX: J10.1 Influenza due to other identified influenza virus with other respiratory manifestations (principal); J96.01 Acute respiratory failure with hypoxia; Z20.822 Contact with and (suspected) exposure to COVID-19; Z28.21 Immunization not carried out because of patient refusal; F17.210 Nicotine dependence, cigarettes, uncomplicated; F03.90 Unspecified dementia, unspecified severity, without behavioral disturbance, psychotic disturbance, mood disturbance, and anxiety; J43.9 Emphysema, unspecified; I95.9 Hypotension, unspecified; R73.9 Hyperglycemia, unspecified; G89.29 Other chronic pain; E78.5 Hyperlipidemia, unspecified; F32.A Depression, unspecified; Z90.12 Acquired absence of left breast and nipple; Z85.3 Personal history of malignant neoplasm of breast; Z79.52 Long term (current) use of systemic steroids; Z79.899 Other long term (current) drug therapy
CPT/HCPCS: 0241U; 36415; 71045; 71046; 71260; 80048; 80053; 82803; 83605; 83735; 84145; 85025; 85379; 93005; 93010; 93306; 94640; 94644; 94660; 94664; 94760; 94761; 94762; 97110; 97116; 97162; 97530; 99285-25; A9270; J1650; J2920; J2930; J7030; J7512; Q9967; U0004

== ENCOUNTER 2025-02-27 12:29 | Day surgery (SDC) | payer MEDICARE, OTHER ==
[~2025-02-27] VITALS: Ht 162.6 cm; Wt 61.9 kg
[~2025-02-27 12:29] MED LIST changes: +ALBU90OI INH; +ALEN70 PO; +BENZ100A PO; +CETI5 PO; +FLUT1DIS5 INH; +Ondansetron HCl 2 MG / ML 2ML Vial ONE; +[UNRECOGNIZED DRUG - OTHER] INH
== END 2025-02-27 23:00 | disposition home or self-care (01) ==
LOC: ORSCMMR 12:29 → ORD 14:00 → ORSCMMR 23:00
DX: Z12.11 Encounter for screening for malignant neoplasm of colon (principal); Z53.9 Procedure and treatment not carried out, unspecified reason
CPT/HCPCS: J2405; J2704; J7120